=== PATIENT | female | born 1985 | race Caucasian/White ===

== ENCOUNTER 2022-04-03 14:38 | Emergency (ER) | payer OTHER, SELFPAY ==
[2022-04-03 14:46] VITALS: BP 146/74; PULSE 65; RESP 16; TEMP 36.7; O2SAT 99
--- NOTE | 2022-04-03 15:52 | ED.GENADULT ---
HPI - General Adult General Chief complaint: Dental/Oral Stated complaint: tooth pain Source: patient Mode of arrival: ambulatory Limitations: no limitations History of Present Illness HPI narrative: Patient presents for evaluation of right lower dental pain for the past few days. She states pain is 9/10 in severity. Pain is throbbing without radiation. She has tried advil without improvement in her symptoms thereafter. No fever, chills, nausea, vomiting. She does not smoke. She has attempted to get in to see a dentist however she was told that there were no appts until June. No additional complaints or concerns. Related Data Allergies Allergy/AdvReac Type Severity Reaction Status Date / Time No Known Allergies Allergy Verified 03/07/19 10:16 Review of Systems Review of Systems: CONSTITUTIONAL: Denies fever, chills, or sweats. EYES: Denies visual changes, redness, or discharge. ENT: Reports right lower dental pain. Denies rhinorrhea, congestion, sore throat, or otalgia. CARDIOVASCULAR: Denies chest pain, palpitations, or edema. RESPIRATORY: Denies cough or dyspnea. GASTROINTESTINAL: Denies abdominal pain, nausea, vomiting, or diarrhea. GENITOURINARY: Denies dysuria or hematuria. SKIN: Denies rash or itching. MUSCULOSKELETAL: Denies back pain, joint pain, or myalgia. NEUROLOGIC: Denies headache, numbness, dizziness, or weakness. PSYCHIATRIC: Denies anxiety or depression. PMFSH Past Medical History Medical History (Updated 04/03/22 @ 16:00 by EMILY Casey, ) No pertinent past medical history Tooth fracture Surgical History Surgical History No pertinent past surgical history Family History Family History Mother Family history non-contributory Social History Social History Smoking status: Never smoker Alcohol intake: never Substance use: never Gender identity (if verbalized by the patient): Female Spiritual care concerns: No Exam Narrative: GENERAL: Well-appearing, well-nourished, and in no acute distress. HEAD: Normocephalic, atraumatic. EYES: PERRLA and EOMI. ENT: Nares clear, no rhinorrhea or epistaxis. Mucous membranes moist. Oropharynx without tonsillar hypertrophy exudate or other lesions. Bilateral TMs pearly szymanski nonbulging. Tooth #30 is necrotic and eroded to the gumline. There is no visible or palpable abscess. NECK: Supple. No adenopathy or masses. No carotid bruits or JVD CHEST: Clear to auscultation. No respiratory distress. No wheezes rales or rhonchi HEART: Regular rate and rhythm. No murmur heard. Normal peripheral pulses. ABDOMEN: Soft, nontender, nondistended, normal active bowel sounds. EXTREMITIES: Normal range of motion. No edema. SKIN: Warm, dry, no rash. NEURO: No focal deficits. Alert and oriented x3. PSYCH: Normal mood and affect. Course Course Emergency Course: This is a 36-year-old female who presented for evaluation of right lower dental pain. She has been a chronic fractured tooth on exam. She has already been taking Advil without any improvement in her symptoms. Will discharge with penicillin and hydrocodone. I provided her with follow-up instructions for dentist. She should follow-up as an outpatient and should go to ER for intractable pain or systemic signs of infection. Level of Care: Express Care Visit Vital Signs Vital signs: Vital Signs Temperature 36.7 C 04/03/22 14:46 Pulse Rate 65 04/03/22 14:46 Respiratory Rate 16 04/03/22 14:46 Blood Pressure 146/74 H 04/03/22 14:46 Pulse Oximetry 99 04/03/22 14:46 Oxygen Delivery Room Air 04/03/22 14:46 Temperature 36.7 C 04/03/22 14:46 Pulse Rate 65 04/03/22 14:46 Respiratory Rate 16 04/03/22 14:46 Blood Pressure 146/74 H 04/03/22 14:46 Pulse Oximetry 99 04/03/22 14:46
== END 2022-04-03 15:26 | disposition home or self-care (01) ==
PROVIDERS: Emergency Provider Nurse Practitioner
DX: S02.5XXA Fracture of tooth (traumatic), initial encounter for closed fracture (principal); X58.XXXA Exposure to other specified factors, initial encounter
CPT/HCPCS: 99213; G0463

== ENCOUNTER 2024-10-31 12:32 | Emergency (ER) | payer SELFPAY ==
--- NOTE | ~2024-10-31 | CT_ITS ---
EXAMINATION: CT BRAIN W/O DATE: 10/31/2024 13:46 INDICATION: Atypical headache TECHNIQUE: Computed tomography (CT) of the head was performed without intravenous contrast. The dose- length product was 605.33 mGy-cm. Automated exposure control and iterative reconstruction technique w ere employed. COMPARISON: No prior studies for comparison. FINDINGS: Normal brain parenchymal volume for age. Normal szymanski-white differentiation. No acute intrac ranial hemorrhage, infarction, mass or mass effect. No ventriculomegaly or midline shift. Midline sagittal images demonstrate a normal corpus callosum, c raniovertebral junction and sella turcica. Basilar cisterns are patent. There is mucosal thickening of the ethmoid and maxillary sinuses with small air-fluid levels. IMPRESSION: 1. No acute intracranial abnormality. 2: Moderate sinus disease. Reviewed, dictated and finalized at location A.
[2024-10-31 12:33] VITALS: BP 161/86; PULSE 66; RESP 16; TEMP 36.4; O2SAT 98
--- OUTSIDE RECORDS SUMMARY | 2024-10-31 12:34 | XMS_ITS | Clinical Summary ---
Author Organization [facility] Address [address] [place] [id number] Care Team Providers Care Respiratory Care Practitioner Name Role Phone Unavailable Primary Care Provider Unavailabl e Social History Tobacco Use Types Packs/Day Years Used Date Smoking Tobacco: Never Assessed Comments Unknown Sex and Gender Information Value Date Recorded Sex Assigned at Not on file Legal Sex Female 6:20 PM CDT Gender Identity Not on file Sexual Orientation Not on file Plan of Treatment Health Maintenance Due Date Last Done Comments Cervical Cancer Screening Pa p Smear (Age 30 to 64) Every 3 Years 1984 Annual Physical 12/07/1987 Hepatitis C 2002 DTaP, Tdap and Td Vaccines ( 1 - Tdap) 12/07/2003 Hepatitis B Vaccines (1 of 3 - 19+ 3-dose series) 12/07/2003 Cervical Cancer Screening Pa p with HPV Testing (Age 30 to 64) Every 5 Years 2014 Cervical Cancer Screening with HPV 2014 COVID-19 Vaccine (2023-2 5 season) 2024 HPV Vaccines Aged Out No longer eligi ble based on patient's age to complete this topic Meningococcal B Vaccine Aged Out No l onger eligible based on patient's age to complete this topic Meningococcal Vaccine Aged Out No codi mariela eligible based on patient's age to complete this topic Pneumococcal Vaccine: Pediat rics (0 to 5 Years) and At-Risk Patients (6 to 49 Years) Aged Out No longer eligible b ased on patient's age to complete this topic RSV Immunizations Under 20 Months Aged Out No longer eligible based on patient's age to complete this topic
[2024-10-31 12:59] VITALS: BP 132/89; PULSE 64; RESP 20; O2SAT 100
[2024-10-31 13:01] VITALS: BP 137/88; PULSE 70; RESP 18; O2SAT 100
[2024-10-31 13:04] LABS: BEDSIDEPREGUCG Negative (Negative)
[2024-10-31 13:10] LABS: Basophils Percent Auto 0.6 % (0.2-1.2); Eosinophils Absolute Auto 0.2 K/mm3 (0-0.3); Hematocrit 39.8 % (37.0-47.0); Immature Granulocyte Absolute 0.02 K/mm3 (0.00-0.031); Immature Granulocyte Percent A 0.3 % (0-0.5); Lymphocytes Absolute Auto 1.21 K/mm3 (0.9-3.2); Mean Corpuscular HGB Conc 32.7 g/dl (32-36); Mean Corpuscular Hemoglobin 29.7 pg (26-34); Mean Corpuscular Volume 90.9 fl (80-100); Mean Platelet Volume 9.9 fl (7.4-10.4); Monocytes Absolute Auto 0.5 K/mm3 (0.1-0.6); Monocytes Percent Auto 6.8 % (2.6-8.5); Neutrophils Absolute Auto 5.1 K/mm3 (1.3-6.7); Neutrophils Percent Auto 72.3 % (45.5-73.1); Platelet Count Result 251 k/mm3 (150-375); Red Blood Count 4.38 M/mm3 (4.2-5.4); Red Cell Distribution Width 11.7 % (11.5-14.5); White Blood Count 7.1 K/mm3 (4.5-10.0)
[2024-10-31 13:22] LABS: Alanine Aminotransferase 16 U/L (6-35); Albumin Level 4.5 g/dL (3.5-5.1); Alkaline Phosphatase 76 U/L (38-126); Anion Gap 9 mmol/L (4-12); Aspartate Amino Transferase 24 U/L (14-36); Bilirubin,Total 0.6 mg/dL (0.2-1.3); Blood Urea Nitrogen 11 mg/dL (7-17); Calcium 9.2 mg/dL (8.4-10.2); Carbon Dioxide 26 mmol/L (22-30); Chloride 103 mmol/L (98-107); Estimated Glomerular Filt Rate > 60; Glucose 102 mg/dL (65-110); INR 0.9; Potassium 3.7 mmol/L (3.4-5.0); Prothrombin Time 12.9 Seconds (11.1-14.7); Sodium 138 mmol/L (137-145)
[2024-10-31 13:23] LABS: Partial Thromboplastin Time 23.7 Seconds (22.3-36.8)
--- NOTE | 2024-10-31 13:25 | ED.GENADULT ---
HPI - General Adult General Chief complaint: Headache Stated complaint: headache Time Seen by Provider: 10/31/24 12:37 History of Present Illness HPI narrative: 38-year-old female presents to the emergency department for intermittent headache since Friday. Patient has been taking Tylenol and ibuprofen and this did help temporarily yesterday. Patient had headache today but did not have any response to Tylenol and ibuprofen. Patient did have an episode of emesis where she had streaks of blood in her urine. Patient states this headache is atypical for her and strong for the left frontal region. Patient denies any fall or injury. Related Data Allergies Allergy/AdvReac Type Severity Reaction Status Date / Time No Known Allergies Allergy Verified 03/07/19 10:16 Review of Systems Review of Systems: All systems reviewed & are unremarkable except as noted in HPI and below PMFSH Past Medical History Medical History (Updated 10/31/24 @ 14:51 by Anatoly Castaneda MD) No pertinent past medical history Tooth fracture Surgical History Surgical History No pertinent past surgical history Family History Family History Mother Family history non-contributory Social History Social History Smoking status: Never smoker Alcohol intake: never Substance use: never Gender identity (if verbalized by the patient): Female Spiritual care concerns: No Exam Narrative: APPEARANCE: Well appearing, no pain, no distress, well-nourished. HEAD: normocephalic, atraumatic. EYES: PERRLA/EOMI, conjunctivae clear. NOSE: Normal no drainage EARS:TMS clear with good light reflex. THROAT: Pharynx clear, no exudate. NECK: Supple. No adenopathy, no masses. RESPIRATORY: Airway patent, respirations nonlabored. Clear to auscultation bilaterally, no rales, rhonchi, wheezing. CARDIOVASCULAR: Regular rate and rhythm without murmurs rubs or gallops. ABDOMINAL: Soft, nontender, nondistended, normal bowel sounds MUSCULOSKELETAL: Moves all extremities. Strength/ROM intact, No edema, No calf tenderness. NEURO: Alert. Cranial nerves II through XII intact. Good gait. Good coordination SKIN: Warm, dry. Normal Color Course Vital Signs Vital signs: Vital Signs Temperature 97.6 F 10/31/24 12:33 Pulse Rate 66 10/31/24 12:33 Respiratory Rate 16 10/31/24 12:33 Blood Pressure 161/86 H 10/31/24 12:33 Pulse Oximetry 98 10/31/24 12:33 Temperature 97.6 F 10/31/24 12:33 Pulse Rate 57 L 10/31/24 13:51 Respiratory Rate 18 10/31/24 13:51 Blood Pressure 135/78 10/31/24 13:51 Pulse Oximetry 100 10/31/24 13:51 Medical Decision Making MDM Narrative Medical decision making narrative: 38-year-old female presents emergency department for evaluation for headache. Head CT was negative. Patient afebrile with no leukocytosis and normal hemoglobin. Patient has no acute abnormalities on her CMP without INR 0.9. Patient patient chest was negative patient was negative influenza RSV COVID and for strep. Patient was treated with IV fluids, IV Compazine, IV Benadryl IV Toradol after the negative head CT. Patient states she does feel improved. Patient was provided additional [place] p.o. for pain control emergency department. Patient was interested in going home and having close follow-up with her primary care physician. All questions concerns were addressed. Differential Diagnosis Differential Diagnosis: Subarachnoid hemorrhage, subdural hematoma, migraine, headache, sinusitis, COVID, RSV, influenza Vital Signs Vital Signs: Vital Signs Temperature 97.6 F 10/31/24 12:33 Pulse Rate 66 10/31/24 12:33 Respiratory Rate 16 10/31/24 12:33 Blood Pressure 161/86 H 10/31/24 12:33 Pulse Oximetry 98 10/31/24 12:33 Temperature 97.6 F 10/31/24 12:33 Pulse Rate 57 L 10/31/24 13:51 Respiratory Rate 18 10/31/24 13:51 Blood Pressure 135/78 10/31/24 13:51 Pulse Oximetry 100 10/31/24 13:51 Lab Data Lab results reviewed: Yes I reviewed the patient's lab results. 10/31/24 13:03 10/31/24 13:03 Labs: Lab Results 10/31/24 10/31/24 Range/Units 13:03 13:04 WBC 7.1 (4.5-10.0) K/mm3 RBC 4.38 (4.2-5.4) M/mm3 Hgb 13.0 (12.0-15.0) g/dL Hct 39.8 (37.0-47.0) % MCV 90.9 (80-100) fl MCH 29.7 (26-34) pg MCHC 32.7 (32-36) g/dl RDW 11.7 (11.5-14.5) % Plt Count 251 (150-375) k/mm3 MPV 9.9 (7.4-10.4) fl Immature Gran % (Auto) 0.3 (0-0.5) % Neut % (Auto) 72.3 (45.5-73.1) % Lymph % (Auto) 17.0 L (18.3-44.2) % [place] % (Auto) 6.8 (2.6-8.5) % Eos % (Auto) 3.0 (0-4.4) % Baso % (Auto) 0.6 (0.2-1.2) % Lymph # (Auto) 1.21 (0.9-3.2) K/mm3 [place] # (Auto) 0.5 (0.1-0.6) K/mm3 Eos # (Auto) 0.2 (0-0.3) K/mm3 Baso # (Auto) 0.0 (0.0-0.1) K/mm3 Abs Immat Gran (auto) 0.02 (0.00-0.031) K/mm3 Absolute Neuts (auto) 5.1 (1.3-6.7) K/mm3 Absolute Nucleated RBC 0.000 (0.0-0.012) K/mm3 Nucleated RBC % 0.0 (0.0-0.2) % PT 12.9 (11.1-14.7) Seconds INR 0.9 APTT 23.7 (22.3-36.8) Seconds Sodium 138 (137-145) mmol/L Potassium 3.7 (3.4-5.0) mmol/L Chloride 103 (98-107) mmol/L Carbon Dioxide 26 (22-30) mmol/L Anion Gap 9 (4-12) mmol/L BUN 11 (7-17) mg/dL Creatinine 0.88 (0.7-1.0) mg/dL Estim Creat Clear Calc Not Reportable Estimated GFR > 60 (59 - ) Glucose 102 (65-110) mg/dL Calcium 9.2 (8.4-10.2) mg/dL Total Bilirubin 0.6 (0.2-1.3) mg/dL AST 24 (14-36) U/L ALT 16 (6-35) U/L Alkaline Phosphatase 76 (38-126) U/L Total Protein 8.0 (6.3-8.2) g/dL Albumin 4.5 (3.5-5.1) g/dL POC Urine HCG, Qual Negative (Negative) Influenza A (RT-PCR) Negative (Negative) Influenza B (RT-PCR) Negative (Negative) RSV (RT-PCR) Negative (Negative) SARS-CoV-2 RNA (RT-PCR) Negative (Negative) Group A Strep (PCR) Not detected (Negative) Imaging Data Radiologist's impression: Impressions Head CT 10/31/24 13:56 IMPRESSION: 1. No acute intracranial abnormality. 2: Moderate sinus disease. Discharge Plan Discharge Clinical Impression: Migraine Patient Disposition: Home Condition: Stable Instructions: Antibiotic Form, Migraine Headache (ED) Additional Instructions: Tylenol and ibuprofen for pain control. Drink plenty of fluids. Have close follow-up with your primary care physician. If you have any worsening symptoms then please call or return to the emergency department. Patient Language: Russian Prescriptions: No Action hydrocodone-acetaminophen 5-325 mg tablet 1 - 2 tablet PO Q8H PRN (Reason: pain) Qty: 20 0RF penicillin V potassium 500 mg tablet 500 mg PO .q6 Qty: 40 0RF Follow-up/Referrals: PHYSICIAN,CONSTRUCTION EQUIPMENT OVERHAULER [Primary Care Provider] -
[2024-10-31 13:34] LABS: Strep Group A RT-PCR NOT DETECTED (Negative)
[2024-10-31 13:46] LABS: Influenza A QL RT-PCR Negative (Negative); Influenza B QL RT-PCR Negative (Negative); RSV RNA, RT-PCR Negative (Negative); SARS-CoV-2 RNA PCR Negative (Negative)
[2024-10-31] MEDS: diphenhydrAMINE HCl INJ 50 MG/ML VIAL IV PUSH (13:49)
[2024-10-31] MEDS: LACTATED RINGERS 1,000 ML 999 ML IV CONT (13:49)
[2024-10-31] MEDS: PROCHLORPERAZINE EDISYLATE 10 MG/2 ML VIAL IV PUSH (13:50)
[2024-10-31 13:51] VITALS: BP 135/78; PULSE 57; RESP 18; O2SAT 100
[2024-10-31] MEDS: HYDROcodone/acetaminophen (*CRX) 5-325 MG TABLET 1 TAB PO (14:59)
[2024-10-31] MEDS: KETOROLAC 30 MG/ML VIAL (*BKC) IV PUSH (14:59)
== END 2024-10-31 15:00 | disposition home or self-care (01) ==
PROVIDERS: Emergency Provider Emergency Medicine
DX: G43.909 Migraine, unspecified, not intractable, without status migrainosus (principal); Z20.822 Contact with and (suspected) exposure to COVID-19; J32.9 Chronic sinusitis, unspecified
CPT/HCPCS: 36415; 70450; 80053; 81025; 85025; 85610; 85730; 87637; 87651; 96361; 96374; 96375; 99284; A9270; J0780; J1200; J1885; J7120